=== PATIENT | female | born 1995 | race African-American/Black ===

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

== ENCOUNTER 2018-01-05 18:08 | Inpatient (IN) | payer OTHER ==
[2018-01-05] MEDS ORDERED: LR 1,000 ML IV (18:52)
[2018-01-05] MEDS ORDERED: LACTATED RINGER'S 1000 ML IV ×2 (18:52→22:30)
[2018-01-05 19:12] LABS: BASO % 0.2 % (0.0-1.0); EOS # 0.1 10^3/uL (0.0-0.50); EOS % 0.5 % (0.0-3.0); HEMATOCRIT 39.5 % (36.0-47.0); HEMOGLOBIN 13.5 g/dl (12.0-15.5); IMMATURE GRANULOCYTE % 0.6 % (0-3.0); LYMPH # 2.4 10^3/uL (1.5-6.5); LYMPH % 14.7 % (24.0-44.0); MEAN CORPUSCULAR HEMOGLOBIN 31.3 pg (27.0-33.0); MEAN CORPUSCULAR HGB CONC 34.2 g/dl (32.0-36.5); MEAN CORPUSCULAR VOLUME 91.6 fl (80.0-96.0); MONO % 5.9 % (0.0-5.0); NEUTROPHILS # 12.9 10^3/uL (1.8-7.7); NEUTROPHILS % 78.1 % (36.0-66.0); PLATELET COUNT, AUTOMATED 153 10^3/uL (150-450); RED BLOOD COUNT 4.31 10^6/uL (4.00-5.40); WHITE BLOOD COUNT 16.6 10^3/uL (4.0-10.0)
[2018-01-05] MEDS ORDERED: FENTANYL 2MCG/ML ROPIVACAINE 0.2% IN 0.9% NACL 200ML IVBAG As Ordered (20:53)
[2018-01-05] MEDS ORDERED: ePHEDrine SULFATE 25 MG/5 ML(5MG/ML) SYRINGE As Ordered (21:29)
[2018-01-05] MEDS ORDERED: REFRIGERATOR IV KEYS XX (22:30)
[2018-01-05] MEDS ORDERED: EPIDURAL COMMENT XX (22:30)
[2018-01-05] MEDS ORDERED: diphenhydrAMINE INJ 50MG/ML VIAL (J1200) IV (22:30)
[2018-01-05] MEDS ORDERED: ONDANSETRON 4MG/2ML VIAL (J2405) IV (22:30)
[2018-01-05] MEDS ORDERED: EPIDURAL/PCA KEYS XX (22:30)
[2018-01-05] MEDS ORDERED: NALOXONE INJ 0.4 MG/1 ML VIAL (J2310) IV (22:30)
[2018-01-05] MEDS ORDERED: ePHEDrine SULFATE 25 MG/5 ML(5MG/ML) SYRINGE IV (22:30)
[2018-01-05] MEDS ORDERED: FENTANYL/ROPIVACAINE/NACL BAG 200 ML EPIDURAL (22:30)
[2018-01-06] MEDS ORDERED: OXYTOCIN 30 UNITS IN 0.9% NaCl 500ML IV BAG (J2590) As Ordered (00:37)
[2018-01-06] MEDS ORDERED: OXYTOCIN DRIP 30 UNITS in APPROPRIATE DILUENT 1 EA IV (02:46)
[2018-01-06 02:50] LABS: CORD GAS ABE A -4.1; CORD GAS ABE V -3.2; CORD GAS HCO3 A 21.5 MEQ/L; CORD GAS HCO3 V 22.2 MEQ/L; CORD GAS O2 SAT A 93.8 %; CORD GAS O2 SAT V 93.8 %; CORD GAS PCO2 A 41.5 mmHg; CORD GAS PCO2 V 41.3 mmHg; CORD GAS PH A 7.333 UNITS; CORD GAS PH V 7.349 UNITS; CORD GAS PO2 V 52.6 mmHg; CORD GAS SBC V 21.7 MEQ/L; CORD GAS TCO2 A 22.8 MEQ/L; CORD GAS TCO2 V 23.5 MEQ/L
[2018-01-06] MEDS ORDERED: ACETAMINOPHEN 500 MG TAB PO (03:00)
[2018-01-06] MEDS ORDERED: ONDANSETRON 4MG/2ML VIAL (J2405) IV (03:00)
[2018-01-06] MEDS ORDERED: DOCUSATE SODIUM 100 MG CAP PO (03:00)
[2018-01-06] MEDS ORDERED: DIBUCAINE 1% OINTMENT 30GM TOP (03:00)
[2018-01-06] MEDS ORDERED: IBUPROFEN 800 MG TAB PO (03:00)
[2018-01-06] MEDS: PRENATAL VITAMINS CHEWABLE TABLET PO (09:00)
[2018-01-07] MEDS: MEASLES,MUMPS,RUBELLA VACCINE INJ (MMR-II) (90707) SC (07:14)
[2018-01-07] MEDS: RHOGAM 300 MCG (1500 IU) INJ (J2790) IM (07:14)
[2018-01-07] MEDS: PRENATAL VITAMINS CHEWABLE TABLET PO (09:00)
== END 2018-01-07 14:12 | disposition home or self-care (01) | DRG 807 ==
LOC: M LDO 18:08 → M OBS 01-06 04:45 → M LDI 18:47
PROVIDERS: Obstetrics & Gynecology
PROC: 10E0XZZ Delivery of Products of Conception, External Approach (ICD-10-PCS; principal; 2018-01-06)
DX: O69.89X0 Labor and delivery complicated by other cord complications, not applicable or unspecified (principal); Z37.0 Single live birth; Z3A.38 38 weeks gestation of pregnancy

== ENCOUNTER 2018-04-24 14:19 | Emergency (ER) | payer OTHER ==
[~2018-04-24] VITALS: Ht 172.7 cm; Wt 79.1 kg
[~2018-04-24 14:19] MED LIST changes: +AMOX500C PO; +IBUP-1114 PO; +MAPA500T2 PO; +NUPE1OIN2 TOP; +PERC5TAB12 PO; +PRENTAB9 PO; +RIGHTAB2 PO
[2018-04-24 14:53] LABS: BASO % 0.5 % (0.0-1.0); EOS # 0.2 10^3/uL (0.0-0.50); EOS % 2.7 % (0.0-3.0); HEMATOCRIT 42.9 % (36.0-47.0); HEMOGLOBIN 14.2 g/dl (12.0-15.5); LYMPH # 2.5 10^3/uL (1.5-6.5); LYMPH % 30.1 % (24.0-44.0); MEAN CORPUSCULAR HEMOGLOBIN 31.5 pg (27.0-33.0); MEAN CORPUSCULAR HGB CONC 33.1 g/dl (32.0-36.5); MEAN CORPUSCULAR VOLUME 95.1 fl (80.0-96.0); MONO # 0.5 10^3/uL (0.0-0.8); NEUTROPHILS % 60.5 % (36.0-66.0); PLATELET COUNT, AUTOMATED 192 10^3/uL (150-450); RED BLOOD COUNT 4.51 10^6/uL (4.00-5.40); WHITE BLOOD COUNT 8.2 10^3/uL (4.0-10.0)
[2018-04-24 15:07] LABS: ALBUMIN 3.9 GM/DL (3.2-5.2); ALT/SGPT 27 U/L (12-78); AMYLASE 71 U/L (25-115); BILIRUBIN,DIRECT 0.1 MG/DL (0.0-0.2); BILIRUBIN,TOTAL 0.4 MG/DL (0.2-1.0); BLOOD UREA NITROGEN 9 MG/DL (7-18); CALCIUM LEVEL 8.8 MG/DL (8.5-10.1); CARBON DIOXIDE LEVEL 32 MEQ/L (21-32); CHLORIDE LEVEL 105 MEQ/L (98-107); CREATININE FOR GFR 0.82 MG/DL (0.55-1.30); GLUCOSE, FASTING 79 MG/DL (70-100); LIPASE 152 U/L (73-393); SODIUM LEVEL 141 MEQ/L (136-145); TOTAL PROTEIN 7.5 GM/DL (6.4-8.2)
[2018-04-24 15:09] LABS: URINE PREG TEST NEGATIVE (NEGATIVE)
[2018-04-24] MEDS ORDERED: MIRA3350 PO (15:28)
[2018-04-24] MEDS ORDERED: MAGNESIUM CITRATE 300 ML BTL PO ONE (15:30)
[2018-04-24 15:37] VITALS: BP 129/68
== END 2018-04-24 15:39 | disposition home or self-care (01) ==
LOC: M ED 14:19
DX: K59.00 Constipation, unspecified (principal); Z87.891 Personal history of nicotine dependence